=== PATIENT | male | born 1945 | race Caucasian/White ===

== ENCOUNTER 2016-09-05 05:29 | Emergency (ER) | payer MEDICARE, OTHER ==
--- NOTE | 2016-09-05 19:01 | ER ---
ADMIT: 09/05/2016 RM/LOC: ER [facility] MR#: [id number] [address] [facility] [id number] RICH REED [address] [place] [id number] Emergency Room Report SEX: M AGE: 71 : 1945 DATE: 09/05/2016 The patient is a 71-year-old male, complaining of 4-day history of fevers, chills, productive cough, and right-sided chest discomfort. Denies any prior history of pneumonia. Exam remarkable for nontoxic, afebrile, tachycardic male with audible wheeze. Responded well to DuoNeb, magnesium, Solu-Medrol. Chest x-ray confirmed right lower lobe pneumonia. Started on Levaquin 750 mg p.o. in department and daily for the next 6 days. Zofran 8 mg IV push with no further vomiting in department. Home with Zofran 8 mg ODT p.r.n. Follow up Dr. Ponce if not improved in 48 hours, otherwise next Monday. Mundo Lopez MD/ larry JOB #: [id number] CC: Mundo Lopez MD, Attending Physician Mendoza Ponce MD, Family Physician Mendoza Ponce MD
== END 2016-09-05 07:05 | disposition home or self-care (01) ==
LOC: ER 05:29
DX: J18.9 Pneumonia, unspecified organism (principal); E78.5 Hyperlipidemia, unspecified; Z88.0 Allergy status to penicillin; Z88.1 Allergy status to other antibiotic agents; Z79.82 Long term (current) use of aspirin